=== PATIENT | female | born 1970 | race Caucasian/White ===

== ENCOUNTER 2025-02-12 16:59 | Inpatient (IN) | payer OTHER ==
[2025-02-12] MEDS ORDERED: ONDANSETRON 4 MG/2 ML VIAL ONE (18:51)
[2025-02-12] MEDS ORDERED: ACETAMINOPHEN INJECTION 100 ML ONE (18:51)
[2025-02-12 18:53] LABS: EPI CELLS >36 /uL (0-25.1); HYALINE CASTS 3 /uL (0-3.1); URINE APPEARANCE CLOUDY; URINE BILIRUBIN 3+ (NEGATIVE); URINE COLOR RED; URINE GLUCOSE (UA) NEGATIVE (NEGATIVE); URINE KETONE 2+ (NEGATIVE); URINE LEUK ESTERASE 2+ (NEGATIVE); URINE NITRITE POSITIVE (NEGATIVE); URINE PROTEIN 2+ (NEGATIVE); URINE RBC 83 /uL (0-23.9); URINE WBC 137 /uL (0-25.8)
[2025-02-12 19:02] LABS: ABSOLUTE IMMATURE GRANULOCYTES 0.05 x10^3/uL (0.0-0.031); BASOPHILS # 0.12 x10^3/uL (0.01-0.08); EOSINOPHIL % 1.7 % (0.7-5.8); EOSINOPHILS # 0.27 x10^3/uL (0.04-0.36); HEMATOCRIT 43.7 % (34.1-44.9); MEAN CELL VOLUME 87.9 fl (79.4-94.8); MEAN PLT VOLUME 10.2 fl (9.4-12.3); MONOCYTE # 1.31 x10^3/uL (0.24-0.86); MONOCYTE % 8.3 % (4.7-12.5); PLATELET COUNT 397 x10^3/uL (182-369); RDW 13.2 % (12.3-16.6)
[2025-02-12] MEDS: ACETAMINOPHEN 1000 MG/100 ML BAG IVPB ONE (19:04)
[2025-02-12] MEDS: ONDANSETRON 4 MG/2 ML VIAL IVPUSH ONE (19:04)
[2025-02-12] MEDS: SODIUM CHLORIDE 0.9% 500 ML INFUS.BAG IV ONE (19:04)
[2025-02-12 19:19] LABS: POTASSIUM 3.8 mmol/L (3.5-5.1)
[2025-02-12 19:21] LABS: ALBUMIN 4.2 g/dl (3.4-5.0); CALCIUM 10.4 mg/dL (8.5-10.1)
[2025-02-12 19:22] LABS: BLOOD UREA NITROGEN 26.7 mg/dL (7-18); MAGNESIUM 2.2 mg/dL (1.8-2.4)
[2025-02-12 19:25] LABS: CREATININE 1.2 mg/dL (0.55-1.3)
[2025-02-12 19:26] LABS: TOT PROT 8.6 g/dl (6.4-8.2)
[2025-02-12 20:03] LABS: URINE BACTERIA 152.7 /uL (0-1359)
[2025-02-12] MEDS ORDERED: PIPERACILLIN/TAZOB 4.5 GM 4.5 GM/100 ML BAG IVPB ONE (20:34)
[2025-02-12 20:39] LABS: VENOUS BASE EXCESS -10.5 mmol/L (-2-2); VENOUS O2 SATURATION 60.4 % (70-80); VENOUS PCO2 50.8 mmHg (38-52)
[2025-02-12 20:43] LABS: VENOUS PH 7.169 (7.310-7.410)
[2025-02-12] MEDS: PIPERACILLIN/TAZOB 4.5 GM 4.5 GM in DEXTROSE 5%-WATER 100 ML IVPB ONE (20:45)
[2025-02-12] MEDS ORDERED: KETOROLAC TROMETHAMINE 15 MG/ML VIAL ONE (20:45)
[2025-02-12] MEDS: KETOROLAC TROMETHAMINE 15 MG/ML VIAL IVPUSH ONE (20:52)
[2025-02-12] MEDS: LACTATED RINGERS SOLUTION 1000 ML INFUS.BAG IV ONE (20:52)
[2025-02-12] MEDS ORDERED: KETOROLAC TROMETHAMINE 15 MG/ML VIAL IVPB PRN (21:06)
[2025-02-12] MEDS ORDERED: ONDANSETRON 4 MG/2 ML VIAL IVPUSH PRN (21:08)
[2025-02-12] MEDS: TAMSULOSIN HCL 0.4 MG CAP PO SCH (22:12)
[2025-02-12] MEDS ORDERED: TAMSULOSIN HCL 0.4 MG CAP ONE (22:13)
[2025-02-12 22:17] LABS: VENOUS BASE EXCESS -4.1 mmol/L (-2-2); VENOUS O2 SATURATION 43.2 % (70-80); VENOUS PCO2 41.4 mmHg (38-52); VENOUS PH 7.334 (7.310-7.410)
[2025-02-12] MEDS: SODIUM CHLORIDE 1,000 ML IV SCH (22:25)
[2025-02-13 01:51] VITALS: RESP 18
[2025-02-13] MEDS: PIPERACILLIN/TAZOB 3.375 GM 3.375 GM in DEXTROSE 5%-WATER - 50 ML IVPB SCH (01:53)
[2025-02-13] MEDS ORDERED: PIPERACILLIN/TAZOB 3.375 GM 3.375 GM in DEXTROSE 5%-WATER - 50 ML IVPB SCH (02:00)
[2025-02-13] MEDS: MELATONIN 5 MG TABLETS PO PRN (02:18)
[2025-02-13] MEDS: hydrOXYzine PAMOATE 25 MG CAPSULE (FP) PO PRN (04:13)
[2025-02-13 07:23] VITALS: BP 128/73; PULSE 80; TEMP 98
[2025-02-13] MEDS: TAMSULOSIN HCL 0.4 MG CAP PO SCH (08:13)
[2025-02-13] MEDS: SODIUM CHLORIDE 1,000 ML IV SCH (08:14)
[2025-02-13 08:42] LABS: HEMOGLOBIN 10.6 g/dL (11.2-15.7); MCHC 31.2 g/dl (32.2-35.5); MEAN CELL VOLUME 89.2 fl (79.4-94.8); MEAN PLT VOLUME 10.2 fl (9.4-12.3); PLATELET COUNT 277 x10^3/uL (182-369); RDW 13.2 % (12.3-16.6)
[2025-02-13 08:43] LABS: INR 1.21 (0.83-1.09); PROTHROMBIN TIME (PATIENT) 13.2 SEC (9.7-13.0)
[2025-02-13 08:49] LABS: POTASSIUM 3.8 mmol/L (3.5-5.1)
[2025-02-13 08:52] LABS: BLOOD UREA NITROGEN 16.2 mg/dL (7-18)
[2025-02-13 08:55] LABS: CREATININE 0.7 mg/dL (0.55-1.3); PHOSPHOROUS 2.9 mg/dL (2.5-4.9)
[2025-02-13 08:56] LABS: ALBUMIN 2.9 g/dl (3.4-5.0); CALCIUM 8.6 mg/dL (8.5-10.1)
[2025-02-13 09:06] LABS: TOT PROT 6.2 g/dl (6.4-8.2)
== END 2025-02-13 13:52 | disposition home or self-care (01) | DRG 465 ==
LOC: JER 16:59 → JERFT 16:59 → JERBED 21:03 → J6S 02-13 01:18
PROVIDERS: ADMIT Internal Medicine; ATTEND Internal Medicine
DX: N20.0 Calculus of kidney (principal); N17.9 Acute kidney failure, unspecified; N13.8 Other obstructive and reflux uropathy
CPT/HCPCS: 36415; 74176-TC; 80053; 81003; 82803; 83605; 83735; 84100; 85025; 85027; 85610; 86850; 86900; 86901; 87040; 87086; 93005; 93010; 99285-25; J0131